=== PATIENT | female | born 1995 | race Caucasian/White ===

== ENCOUNTER 2016-11-10 10:07 | Day surgery (SDC) | payer MEDICAID ==
--- NOTE | 2016-11-09 07:51 | HP ---
DATE OF SURGERY: 11/10/2016 ADMISSION DIAGNOSIS: Symptomatic cholelithiasis, sludge. ANTICIPATED PROCEDURE: HISTORY OF PRESENT ILLNESS: A 20 year-old with upper abdominal pain. Ultrasound positive. PAST MEDICAL HISTORY: ALLERGIES: NONE. MEDICATIONS: Albuterol inhaler. PAST SURGICAL HISTORY: section, tubes in ears. SOCIAL HISTORY: Negative. FAMILY HISTORY: Negative. REVIEW OF SYSTEMS: Asthma. PHYSICAL EXAMINATION: VITAL SIGNS: Normal. CHEST: Clear. COR: Regular. ABDOMEN: No palpable organomegaly or mass. IMPRESSION: 1) Symptomatic cholelithiasis. 2) Asthma. PLAN: Laparoscopic cholecystectomy.
[~2016-11-10 10:07] MED LIST: BRIDION 200MG/2ML IV ONE; DIPRIVAN 200 MG/20 ML IV ONE; Decadron 4 MG INJ IV ONE; Lactated Ringers 1,000 ML IV ONE; Lactated Ringers 1,000 ML IV SCH; MEFOXIN 2 GM PREMIX** 50 ML IV ONE; Pepcid 20 MG VIAL IV ONE; Quelicin Fliptop 200 MG/10 ML IJ ONE; Sensorcaine 0.25% 10 ML ONE; TORAdol 30 mg Injection IJ ONE; Zemuron 100 MG/10 ML IJ ONE; Zofran 4 MG/2 ML VIAL IV ONE
[2016-11-10] MEDS ORDERED: MEFOXIN 2 GM PREMIX** 50 ML IV ONE (10:16)
[2016-11-10] MEDS ORDERED: Lactated Ringers 1,000 ML IV ONE (10:17)
[2016-11-10] MEDS ORDERED: Pepcid 20 MG VIAL IV ONE (10:17)
[2016-11-10] MEDS ORDERED: SUBLIMAZE 100 MCG/2 ML ONE (17:25)
[2016-11-10] MEDS ORDERED: MORPHINE SULFATE 2 MG INJ IV PRN (18:32)
[2016-11-10] MEDS ORDERED: MORPHINE SULFATE 2 MG INJ ONE (18:35)
[2016-11-10 18:48] VITALS: O2SAT 97
[2016-11-10 19:01] VITALS: BP 116/74; PULSE 104
--- NOTE | 2016-11-12 14:34 | OP ---
SURGERY DATE/TIME: 11/10/2016 1530 PREOPERATIVE DIAGNOSIS: Symptomatic cholelithiasis. POSTOPERATIVE DIAGNOSIS: Symptomatic cholelithiasis. PROCEDURE: Laparoscopic cholecystectomy. SURGEON: Tom Bennett M.D. ANESTHESIA: General endotracheal tube. COMPLICATIONS: None. CONDITION: Stable. INDICATION: A patient with upper abdominal pain. Ultrasound positive. Seen and examined. Procedure discussed in detail and wished to proceed. DESCRIPTION OF PROCEDURE: Taken to surgery. General anesthetic, routine prep and drape. Verses needle inserted. Opening pressure of 1, insufflating pressure 14. Four - 5's used. Good visualization. Cystic duct defined. Cystic artery defined. Both structures triply clipped and transected. Clips noted across and well approximated. Gallbladder rolled out of gallbladder fossa. It was necessary to widen the upper epigastric port significantly. The gallbladder was extracted. At this time two sutures placed with hole closure device with 0 Vicryl totally closing the defect. Skin closed with 4-0 Vicryl and Steri-Strips. The patient tolerated the procedure satisfactorily.
== END 2016-11-10 19:04 | disposition home or self-care (01) ==
LOC: EDBD 10:07 → SDC 10:07
PROVIDERS: ATTEND Surgery
PROC: 0FT44ZZ Resection of Gallbladder, Percutaneous Endoscopic Approach (ICD-10-PCS; principal; 2016-11-10)
DX: K80.20 Calculus of gallbladder without cholecystitis without obstruction (principal); J45.909 Unspecified asthma, uncomplicated
CPT/HCPCS: 00790; 36415; 84703; 88304; 96374; J0330; J0694; J1100; J1885; J2270; J2405; J2704; J3010